=== PATIENT | female | born 1950 | race Caucasian/White ===

== ENCOUNTER → 2017-03-09 | Outpatient (CLI) | payer OTHER ==
[~2017-03-09] MED LIST: ABILIFY MAINTE400 M1 IM; COMBIVENT0.074 GM/I INH; LIPITOR TAB 2020 MG PO; NORCO 5-325 TA1 EACH PO; PERCOCET 5-3251 EACH PO; PERCOCET 5/325 T1 EA PO; PROTONIX 40 MG40 M1 PO; REMERON30 MG PO; VENTOLIN HFA 66.7 GM INH; VITAMIN D250000 UNIT PO; ZANTAC150 MG PO; ZESTRIL20 MG PO
[2017-03-09 10:37] LABS: HEMOGLOBIN 13.2 gm/dl (12.3-15.3); RED BLOOD COUNT 4.5 M/UL (4.00-5.10)
== END ==
LOC: OPSV2 09:45 → EDSTATUS 10:00 → OPSV2 10:00
PROVIDERS: Orthopaedic Surgery
DX: Z01.812 Encounter for preprocedural laboratory examination (principal); Z01.818 Encounter for other preprocedural examination; Z01.810 Encounter for preprocedural cardiovascular examination; M17.32 Unilateral post-traumatic osteoarthritis, left knee; I10 Essential (primary) hypertension; E87.6 Hypokalemia; Z88.2 Allergy status to sulfonamides
CPT/HCPCS: 36415; 71020; 80048; 81001; 85027; 87081; 87086; 93005

== ENCOUNTER → 2017-03-18 | Outpatient (CLI) | payer OTHER | LOC: LAB 12:08 | DX: Z01.812 Encounter for preprocedural laboratory examination (principal); M19.90 Unspecified osteoarthritis, unspecified site; I10 Essential (primary) hypertension | CPT/HCPCS: 36415; 80051; 82565; 84520; 86850; 86900; 86901 ==

== ENCOUNTER 2017-03-19 05:46 | Inpatient (IN) | payer OTHER ==
[~2017-03-19] VITALS: Ht 160 cm; Wt 63.5 kg
[~2017-03-19 05:46] MED LIST changes: -NORCO 5-325 TA1 EACH PO
[2017-03-19] MEDS ORDERED: NORCO 5-325 TA1 EACH PO (06:19)
[2017-03-20 05:34] LABS: HEMOGLOBIN 8.4 gm/dl (12.3-15.3); RED BLOOD COUNT 2.9 M/UL (4.00-5.10); WHITE BLOOD COUNT 12.4 K/UL (4.5-11.0)
[2017-03-20 06:03] LABS: BUN/CREATININE RATIO 16 (0-10)
[2017-03-21 07:11] LABS: RED BLOOD COUNT 2.83 M/UL (4.00-5.10)
[2017-03-21 07:12] LABS: WHITE BLOOD COUNT 9.2 K/UL (4.5-11.0)
[2017-03-21 07:23] LABS: BUN/CREATININE RATIO 20 (0-10)
[2017-03-22 05:55] LABS: HEMOGLOBIN 8.1 gm/dl (12.3-15.3); RED BLOOD COUNT 2.83 M/UL (4.00-5.10); WHITE BLOOD COUNT 10.8 K/UL (4.5-11.0)
[2017-03-22 06:23] LABS: BUN/CREATININE RATIO 16 (0-10)
[2017-03-23 06:06] LABS: HEMOGLOBIN 7.7 gm/dl (12.3-15.3); RED BLOOD COUNT 2.68 M/UL (4.00-5.10); WHITE BLOOD COUNT 11.5 K/UL (4.5-11.0)
[2017-03-23 06:19] LABS: BUN/CREATININE RATIO 19 (0-10)
[2017-03-24 04:32] LABS: HEMOGLOBIN 7.4 gm/dl (12.3-15.3); RED BLOOD COUNT 2.57 M/UL (4.00-5.10); WHITE BLOOD COUNT 12.4 K/UL (4.5-11.0)
[2017-03-24 04:48] LABS: BUN/CREATININE RATIO 16 (0-10)
[2017-03-25 06:12] LABS: HEMOGLOBIN 7.6 gm/dl (12.3-15.3); RED BLOOD COUNT 2.67 M/UL (4.00-5.10); WHITE BLOOD COUNT 12.3 K/UL (4.5-11.0)
== END 2017-03-25 17:04 | DRG 469 ==
LOC: ZOBSOF 05:46 → OR 08:15 → EDSTATUS 08:15 → M/S 16:34
PROVIDERS: Internal Medicine; ADMIT Orthopaedic Surgery
PROC: 0QPH04Z Removal of Internal Fixation Device from Left Tibia, Open Approach (ICD-10-PCS; 2017-03-19)
PROC: 3E0T3CZ (ICD-10-PCS; 2017-03-19)
PROC: 0SRD0J9 Replacement of Left Knee Joint with Synthetic Substitute, Cemented, Open Approach (ICD-10-PCS; principal; 2017-03-19 08:15)
PROC: 0LQR0ZZ Repair Left Knee Tendon, Open Approach (ICD-10-PCS; 2017-03-19 08:15)
DX: M17.32 Unilateral post-traumatic osteoarthritis, left knee (principal); J96.01 Acute respiratory failure with hypoxia; J18.9 Pneumonia, unspecified organism; M96.820 Accidental puncture and laceration of a musculoskeletal structure during a musculoskeletal system procedure; S76.122A Laceration of left quadriceps muscle, fascia and tendon, initial encounter; S82.102K Unspecified fracture of upper end of left tibia, subsequent encounter for closed fracture with nonunion; D62 Acute posthemorrhagic anemia; J44.0 Chronic obstructive pulmonary disease with (acute) lower respiratory infection; S82.102S Unspecified fracture of upper end of left tibia, sequela; M89.562 Osteolysis, left lower leg; X58.XXXS Exposure to other specified factors, sequela; Y83.8 Other surgical procedures as the cause of abnormal reaction of the patient, or of later complication, without mention of misadventure at the time of the procedure; Y79.3 Surgical instruments, materials and orthopedic devices (including sutures) associated with adverse incidents; Y92.234 Operating room of hospital as the place of occurrence of the external cause; Z47.2 Encounter for removal of internal fixation device; M24.562 Contracture, left knee; M21.162 Varus deformity, not elsewhere classified, left knee; I10 Essential (primary) hypertension; M81.0 Age-related osteoporosis without current pathological fracture; F31.9 Bipolar disorder, unspecified; F17.200 Nicotine dependence, unspecified, uncomplicated; Z79.891 Long term (current) use of opiate analgesic; Z79.899 Other long term (current) drug therapy; Z88.2 Allergy status to sulfonamides
CPT/HCPCS: 36415; 71010; 73560; 73590; 76000; 80048; 81001; 82607; 82728; 82746; 83540; 83550; 85018; 85027; 86255; 87040; 94640; 97110; 97116; 97530; 97535; J0690; J1200; J1756; J2250; J2270; J2795; J2930; J3010; J3370; J7050; J7120; P9045

== ENCOUNTER 2020-12-10 09:56 | Emergency (ER) | payer MEDICARE, OTHER ==
[~2020-12-10 09:56] MED LIST changes: +AUSTEDO PO; +BUSPIRONE HCL15 MG PO; +CLOZARIL100 MG PO; +LAMICTAL100 MG PO; +NORCO 5-325 TA1 EACH PO; +RISPERDAL1 MG PO; +ZYPREXA10 MG PO
== END 2020-12-10 10:52 | disposition left against medical advice (07) ==
LOC: ER1 09:56
DX: Z53.21 Procedure and treatment not carried out due to patient leaving prior to being seen by health care provider (principal)

== ENCOUNTER 2020-12-10 14:09 | Emergency (ER) | payer MEDICARE, OTHER | END 2020-12-10 18:15 | disposition home or self-care (01) | LOC: ER1 14:09 | DX: S01.00XD Unspecified open wound of scalp, subsequent encounter (principal); I10 Essential (primary) hypertension; F17.210 Nicotine dependence, cigarettes, uncomplicated; X58.XXXD Exposure to other specified factors, subsequent encounter | CPT/HCPCS: 99281 ==

== ENCOUNTER 2020-12-28 19:16 | Emergency (ER) | payer MEDICARE, OTHER | END 2020-12-28 21:20 | disposition left against medical advice (07) | LOC: ER1 19:16 | DX: Z53.21 Procedure and treatment not carried out due to patient leaving prior to being seen by health care provider (principal) ==

== ENCOUNTER 2020-12-28 21:29 | Emergency (ER) | payer MEDICARE, OTHER | END 2020-12-28 22:30 | disposition left against medical advice (07) | LOC: ER1 21:29 | DX: Z53.21 Procedure and treatment not carried out due to patient leaving prior to being seen by health care provider (principal) ==